=== PATIENT | male | born 1960 | race Caucasian/White ===

== ENCOUNTER → 2018-02-28 | Outpatient (CLI) | payer OTHER | END | disposition home or self-care (01) | LOC: KCIC 14:56 | DX: M47.892 Other spondylosis, cervical region (principal); M48.02 Spinal stenosis, cervical region; M50.323 Other cervical disc degeneration at C6-C7 level; M19.012 Primary osteoarthritis, left shoulder | CPT/HCPCS: 72050; 73030 ==

== ENCOUNTER 2018-04-06 15:03 | Emergency (ER) | payer OTHER ==
[2018-04-06 15:53] LABS: BILIRUBIN,URINE SMALL (NEG); CLARITY,URINE CLEAR; GLUCOSE,URINE 100 mg/dL (NEG); NITRITE,URINE NEGATIVE (NEG); PH,URINE 5.5; PROTEIN,URINE 100 mg/dL (NEG-TRACE)
[2018-04-06] MEDS: IV NORMAL SALINE 1000ML BAG 1,000 ML IV (16:00)
[2018-04-06 16:03] LABS: COLOR,URINE DK YELLOW
[2018-04-06 16:04] LABS: BACTERIA,URINE 0 /HPF (0-FEW); HYALINE CASTS, URINE MODERATE /HPF; RBC,URINE 0 /HPF (0-2); WBC,URINE OCC /HPF (0-4)
[2018-04-06 16:19] LABS: ADD MAN DIFF? NO
[2018-04-06 16:22] LABS: BASO % 0 % (0-3); EOS % 0 % (0-3); HEMATOCRIT 42.4 % (39.0-53.0); HEMOGLOBIN 14.3 g/dL (13.0-17.5); LYMPH # 0.8 x10^3/uL (1.0-4.8); LYMPH % 10 % (24-48); MEAN CORPUSCULAR HEMOGLOBIN 30 pg (25-35); MEAN CORPUSCULAR HGB CONC 34 g/dL (31-37); MEAN CORPUSCULAR VOLUME 89 fL (79-100); MONO # 0.8 x10^3/uL (0.0-1.1); MONO % 10 % (0-9); NEUT # 6.5 x10^3uL (1.8-7.7); NEUT % 80 % (31-73); PLATELET COUNT 225 x10^3/uL (140-400); RED BLOOD COUNT 4.77 x10^6/uL (4.30-5.70); RED CELL DISTRIBUTION WIDTH 13.9 % (11.5-14.5); WHITE BLOOD COUNT 8.2 x10^3/uL (4.0-11.0)
[2018-04-06 16:33] LABS: ANION GAP 10 (6-14); BLOOD UREA NITROGEN 17 mg/dL (8-26); BUN/CREATININE RATIO 17 (6-20); CALCIUM 9.4 mg/dL (8.5-10.1); CARBON DIOXIDE 28 mmol/L (21-32); CHLORIDE 105 mmol/L (98-107); GFR 76.2; GLUCOSE 153 mg/dL (70-99); POTASSIUM 4.1 mmol/L (3.5-5.1); SODIUM 143 mmol/L (136-145)
[2018-04-06 16:35] LABS: INR 1.2 (0.8-1.1)
[2018-04-06 16:36] LABS: PARTIAL THROMBOPLASTIN TIME 33 SEC (24-38)
[2018-04-06 16:38] LABS: ALBUMIN 3.9 g/dL (3.4-5.0); ALBUMIN/GLOBULIN RATIO 1.1 (1.0-1.7); ALK PHOS 70 U/L (46-116); ALT (SGPT) 35 U/L (16-63); AST (SGOT) 18 U/L (15-37); LIPASE 95 U/L (73-393); TOTAL BILIRUBIN 1.4 mg/dL (0.2-1.0); TOTAL PROTEIN 7.3 g/dL (6.4-8.2)
[2018-04-06 16:41] LABS: LACTIC ACID 1.1 mmol/L (0.4-2.0)
[2018-04-06] MEDS: IOHEXOL 300 MG/ML 100ML VIAL. IV (16:49)
== END 2018-04-06 17:56 | disposition home or self-care (01) ==
LOC: ER 15:03
DX: K42.9 Umbilical hernia without obstruction or gangrene (principal); E78.00 Pure hypercholesterolemia, unspecified; I10 Essential (primary) hypertension; E11.9 Type 2 diabetes mellitus without complications; I48.91 Unspecified atrial fibrillation; Z90.49 Acquired absence of other specified parts of digestive tract
CPT/HCPCS: 36415; 74177; 80053; 81001; 83605; 83690; 85025; 85610; 85730; 99285-25; J7030; Q9967

== ENCOUNTER → 2018-04-25 | Day surgery (SDC) | payer OTHER ==
[~2018-04-25] MED LIST: DEXAMETHASONE SOD PHOS 20 MG/5 ML VIAL.; GLYCOPYRROLATE 1 MG/5 ML VIAL.; LIDOCAINE 1% PF 2 ML VIAL. ID; LIDOCAINE 2% PF Vial for OR 5 ML VIAL.; MORPHINE SULFATE 4 MG/ML DISP.SYRIN. IV; NEOSTIGMINE 10 MG/10 ML VIAL.; ONDANSETRON PF 4 MG/2 ML VIAL.; PHENYLEPHRINE in 0.9% NACL PF 1 MG/10 ML SYRINGE. IV; PROCHLORPERAZINE 10 MG/2 ML VIAL. IV; PROPOFOL 20 ML IV; ROCURONIUM 50 MG/5 ML VIAL.; ceFAZolin 2GM PREMIX 2 GM/50 ML BAG IV; ePHEDrine PF IN SALINE 50 MG/5 ML DISP.SYRIN IV; fentaNYL PF VIAL 100 MCG/2 ML VIAL; fentaNYL PF VIAL 100 MCG/2 ML VIAL IV
[2018-04-25] MEDS: IV RINGERS,LACTATED 1000ML 1,000 ML IV (12:00)
[2018-04-25 12:01] LABS: POC GLUCOSE 136 mg/dL (70-99)
[2018-04-25] MEDS: BUPIVACAINE-EPI 0.25%-1:200000 50 ML VIAL. (13:08)
[2018-04-25 14:25] LABS: POC GLUCOSE 191 mg/dL (70-99)
[2018-04-25] MEDS: fentaNYL PF VIAL 100 MCG/2 ML VIAL IV ×2 (14:29→14:39)
[2018-04-25] MEDS: oxyCODONE/APAP 5/325 1 TAB TABLET PO (15:04)
== END | disposition home or self-care (01) ==
LOC: SURG 11:28
DX: K43.0 Incisional hernia with obstruction, without gangrene (principal); E78.00 Pure hypercholesterolemia, unspecified; I48.91 Unspecified atrial fibrillation; E11.9 Type 2 diabetes mellitus without complications; I10 Essential (primary) hypertension; Z83.3 Family history of diabetes mellitus; Z90.49 Acquired absence of other specified parts of digestive tract; Z98.890 Other specified postprocedural states; Z72.89 Other problems related to lifestyle; Z82.49 Family history of ischemic heart disease and other diseases of the circulatory system; Z79.84 Long term (current) use of oral hypoglycemic drugs
CPT/HCPCS: 49657; 82962; A7015; C1781; J0690; J1100; J2370; J2405; J2704; J2710; J3010; J3490; J7120